=== PATIENT | male | born 1975 | race African-American/Black ===

== ENCOUNTER 2020-03-30 20:46 | Inpatient (IN) | payer OTHER ==
[2020-03-30 22:42] LABS: BASO % 0.3 % (0-2.0); HEMATOCRIT 40.6 % (35.4-49); HEMOGLOBIN 13.4 GM/dL (11.7-16.9); LYMPH % 18.7 % (8-40); MCH 27.6 pg (25.7-33.7); MEAN CELL VOLUME 83.6 fl (80-96); MEAN PLT VOLUME 8.5 fl (7.5-11.1); PLATELET COUNT 376 K/MM3 (134-434); RBC 4.85 M/mm3 (4.00-5.60); RDW 13.6 % (11.9-15.9); WHITE BLOOD COUNT 5.6 K/mm3 (4.0-10.0)
[2020-03-30 22:53] LABS: INR 1.09 (0.83-1.09); PROTHROMBIN TIME (PATIENT) 13.4 SEC (9.7-13.0)
[2020-03-30 22:56] LABS: ACTIVATED PTT 29.2 SECONDS (25.2-36.5)
[2020-03-30] MEDS ORDERED: LACTATED RINGERS SOLUTION 1000 ML INFUS.BAG IV ONE (22:56)
[2020-03-30] MEDS ORDERED: ACETAMINOPHEN 325 MG TABLET (FP) PO ONE (22:56)
[2020-03-30] MEDS ORDERED: ACETAMINOPHEN 325 MG TABLET (FP) ONE (22:59)
[2020-03-30 23:14] LABS: CHLORIDE 100 mmol/L (98-107); POTASSIUM 4.1 mmol/L (3.5-5.1); SODIUM 133 mmol/L (136-145)
[2020-03-30 23:17] LABS: CALCIUM 8.7 mg/dL (8.5-10.1)
[2020-03-30 23:18] LABS: ANION GAP 8 MMOL/L (8-16); BLOOD UREA NITROGEN 13.6 mg/dL (7-18); CO2 25 mmol/L (21-32); GLUCOSE,RANDOM 170 mg/dL (74-106)
[2020-03-30 23:20] LABS: BILIRUBIN,DIRECT 0.2 mg/dL (0.0-0.2)
[2020-03-30 23:21] LABS: SGOT/AST 99 U/L (15-37); SGPT/ALT 108 U/L (13-61)
[2020-03-30 23:22] LABS: BILIRUBIN,TOTAL 0.5 mg/dL (0.2-1); LDH 663 U/L (87-246); TOT PROT 7.8 g/dl (6.4-8.2)
[2020-03-30 23:44] LABS: ALK PHOS 49 U/L (45-117)
[2020-03-31] MEDS ORDERED: DEXAMETHASONE SOD PHOSPHATE 4 MG/1 ML VIAL IVPUSH ONE (00:29)
[2020-03-31] MEDS ORDERED: ENOXAPARIN NA (PORCINE) 80 MG/0.8 ML DISP.SYRIN SQ ONE (00:29)
[2020-03-31 01:37] LABS: VENOUS BASE EXCESS 1.8 mmol/L (-2-2); VENOUS PCO2 42.2 mmHg (38-52); VENOUS PH 7.417 (7.310-7.410)
[2020-03-31] MEDS ORDERED: CEFTRIAXONE 1 GM in DEXTROSE 5%-WATER - 50 ML IVPB SCH (02:00)
[2020-03-31] MEDS ORDERED: ENOXAPARIN NA (PORCINE) 100 MG/1 ML DISP.SYRIN SQ ONE ×2 (02:03→09:55)
[2020-03-31] MEDS ORDERED: DEXAMETHASONE SOD PHOSPHATE 10 MG/1 ML VIAL ONE ×2 (02:03→09:54)
[2020-03-31] MEDS ORDERED: ASCORBIC ACID 500 MG TABLET (FP) ONE ×2 (02:37→09:54)
[2020-03-31] MEDS ORDERED: CEFTRIAXONE 1 GM/50 ML BAG ONE ×2 (02:37→09:55)
[2020-03-31] MEDS: ASCORBIC ACID 500 MG TABLET (FP) PO SCH ×3 (02:46→22:23)
[2020-03-31] MEDS ORDERED: ALBUTEROL SO4 HFA INHALER IH PRN ×2 (04:51→05:00)
[2020-03-31 08:09] LABS: POTASSIUM 4.5 mmol/L (3.5-5.1)
[2020-03-31 08:17] LABS: CALCIUM 8.6 mg/dL (8.5-10.1)
[2020-03-31 08:18] LABS: ALBUMIN 2.8 g/dl (3.4-5.0); BLOOD UREA NITROGEN 12.8 mg/dL (7-18)
[2020-03-31 08:21] LABS: CREATININE 0.8 mg/dL (0.55-1.3)
[2020-03-31 08:22] LABS: TOT PROT 7.4 g/dl (6.4-8.2)
[2020-03-31 08:23] LABS: BILIRUBIN,TOTAL 0.4 mg/dL (0.2-1)
[2020-03-31] MEDS ORDERED: CHOLECALCIFEROL (VIT D3) 1,000 UNIT (25 MCG) TABLET ONE (09:54)
[2020-03-31] MEDS ORDERED: ZINC SULFATE 220 MG CAPSULE (FP) ONE (09:54)
[2020-03-31] MEDS ORDERED: ZINC SULFATE 220 MG TABLET PO SCH ×2 (10:00)
[2020-03-31] MEDS: CEFTRIAXONE 1 GM in DEXTROSE 5%-WATER - 50 ML IVPB SCH (10:00)
[2020-03-31] MEDS: CHOLECALCIFEROL (VIT D3) 1,000 UNIT (25 MCG) TABLET PO SCH (10:00)
[2020-03-31] MEDS ORDERED: ENOXAPARIN NA (PORCINE) 80 MG/0.8 ML DISP.SYRIN SQ SCH (10:00)
[2020-03-31] MEDS: DEXAMETHASONE SOD PHOSPHATE 4 MG/1 ML VIAL IVPUSH SCH (10:00)
[2020-03-31] MEDS: AZITHROMYCIN IVPB 500 MG/250 ML BAG IVPB SCH (15:19)
[2020-03-31] MEDS ORDERED: REMDESIVIR 200 MG in SODIUM CHLORIDE 210 ML IVPB ONE (16:00)
[2020-04-01 08:44] LABS: BASO % 0.2 % (0-2.0); HEMATOCRIT 36.1 % (35.4-49); HEMOGLOBIN 12.2 GM/dL (11.7-16.9); MEAN CELL VOLUME 82.6 fl (80-96); MEAN PLT VOLUME 7.8 fl (7.5-11.1); NEUT % 71.8 % (42.8-82.8); PLATELET COUNT 496 K/MM3 (134-434); RBC 4.37 M/mm3 (4.00-5.60); RDW 13.7 % (11.9-15.9); WHITE BLOOD COUNT 7.6 K/mm3 (4.0-10.0)
[2020-04-01 09:05] LABS: POTASSIUM 4.3 mmol/L (3.5-5.1)
[2020-04-01 09:14] LABS: CALCIUM 8.3 mg/dL (8.5-10.1)
[2020-04-01 09:15] LABS: ALBUMIN 2.5 g/dl (3.4-5.0); BLOOD UREA NITROGEN 19.1 mg/dL (7-18)
[2020-04-01 09:16] LABS: BILIRUBIN,TOTAL 0.4 mg/dL (0.2-1); TOT PROT 6.8 g/dl (6.4-8.2)
[2020-04-01 09:18] LABS: CREATININE 0.9 mg/dL (0.55-1.3)
[2020-04-01] MEDS: ENOXAPARIN NA (PORCINE) 40 MG/0.4 ML DISP.SYRIN SQ SCH (10:50)
[2020-04-01] MEDS: ASCORBIC ACID 500 MG TABLET (FP) PO SCH ×2 (10:50→22:18)
[2020-04-01] MEDS: CHOLECALCIFEROL (VIT D3) 1,000 UNIT (25 MCG) TABLET PO SCH (10:50)
[2020-04-01] MEDS: FAMOTIDINE 20 MG TABLET PO SCH ×2 (10:50→22:18)
[2020-04-01] MEDS: ZINC SULFATE 220 MG CAPSULE (FP) PO SCH (10:51)
[2020-04-01] MEDS: DEXAMETHASONE SOD PHOSPHATE 4 MG/1 ML VIAL IVPUSH SCH (10:51)
[2020-04-01] MEDS: AZITHROMYCIN IVPB 500 MG/250 ML BAG IVPB SCH (12:15)
[2020-04-01] MEDS: CEFTRIAXONE 1 GM in DEXTROSE 5%-WATER - 50 ML IVPB SCH (12:15)
[2020-04-01] MEDS: REMDESIVIR 100 MG in SODIUM CHLORIDE 230 ML IVPB SCH (19:13)
[2020-04-02] MEDS: CHOLECALCIFEROL (VIT D3) 1,000 UNIT (25 MCG) TABLET PO SCH (10:04)
[2020-04-02] MEDS: ENOXAPARIN NA (PORCINE) 40 MG/0.4 ML DISP.SYRIN SQ SCH (10:04)
[2020-04-02] MEDS: ZINC SULFATE 220 MG CAPSULE (FP) PO SCH (10:04)
[2020-04-02] MEDS: ASCORBIC ACID 500 MG TABLET (FP) PO SCH ×2 (10:04→22:00)
[2020-04-02] MEDS: FAMOTIDINE 20 MG TABLET PO SCH ×2 (10:04→22:00)
[2020-04-02] MEDS: DEXAMETHASONE SOD PHOSPHATE 4 MG/1 ML VIAL IVPUSH SCH (10:04)
[2020-04-02 10:28] LABS: BASO % 0.5 % (0-2.0); EOS % 0.1 % (0-4.5); HEMATOCRIT 37.9 % (35.4-49); HEMOGLOBIN 12.7 GM/dL (11.7-16.9); LYMPH % 21.5 % (8-40); MCH 27.8 pg (25.7-33.7); MCHC 33.6 g/dl (32.0-35.9); MEAN CELL VOLUME 82.8 fl (80-96); MEAN PLT VOLUME 7.7 fl (7.5-11.1); MONO % 8.1 % (3.8-10.2); NEUT % 69.8 % (42.8-82.8); PLATELET COUNT 555 K/MM3 (134-434); RBC 4.58 M/mm3 (4.00-5.60); RDW 13.4 % (11.9-15.9); WHITE BLOOD COUNT 6.6 K/mm3 (4.0-10.0)
[2020-04-02 10:31] LABS: POTASSIUM 4.3 mmol/L (3.5-5.1)
[2020-04-02 10:38] LABS: ALBUMIN 2.7 g/dl (3.4-5.0); BLOOD UREA NITROGEN 14.6 mg/dL (7-18); CALCIUM 8.7 mg/dL (8.5-10.1); MAGNESIUM 2.1 mg/dL (1.8-2.4)
[2020-04-02 10:41] LABS: BILIRUBIN,TOTAL 0.6 mg/dL (0.2-1)
[2020-04-02 10:42] LABS: CREATININE 0.8 mg/dL (0.55-1.3); PHOSPHOROUS 4.1 mg/dL (2.5-4.9)
[2020-04-02 11:46] LABS: ERYTHROCYTE SEDIMENTATION RATE 74 mm/hr (0-10)
[2020-04-02] MEDS: CEFTRIAXONE 1 GM in DEXTROSE 5%-WATER - 50 ML IVPB SCH (12:20)
[2020-04-02] MEDS: AZITHROMYCIN IVPB 500 MG/250 ML BAG IVPB SCH (12:53)
[2020-04-02] MEDS: REMDESIVIR 100 MG in SODIUM CHLORIDE 230 ML IVPB SCH (15:16)
[2020-04-03] MEDS: CHOLECALCIFEROL (VIT D3) 1,000 UNIT (25 MCG) TABLET PO SCH (10:28)
[2020-04-03] MEDS: ASCORBIC ACID 500 MG TABLET (FP) PO SCH ×2 (10:28→21:08)
[2020-04-03] MEDS: ZINC SULFATE 220 MG CAPSULE (FP) PO SCH (10:28)
[2020-04-03] MEDS: FAMOTIDINE 20 MG TABLET PO SCH ×2 (10:28→21:08)
[2020-04-03] MEDS: ENOXAPARIN NA (PORCINE) 40 MG/0.4 ML DISP.SYRIN SQ SCH (10:34)
[2020-04-03 10:40] LABS: BASO % 0.2 % (0-2.0); EOS % 0.3 % (0-4.5); HEMATOCRIT 37.4 % (35.4-49); HEMOGLOBIN 12.6 GM/dL (11.7-16.9); LYMPH % 26.6 % (8-40); MCHC 33.7 g/dl (32.0-35.9); MEAN PLT VOLUME 7.6 fl (7.5-11.1); MONO % 7.2 % (3.8-10.2); NEUT % 65.7 % (42.8-82.8); PLATELET COUNT 624 K/MM3 (134-434); RBC 4.51 M/mm3 (4.00-5.60); RDW 13.3 % (11.9-15.9); WHITE BLOOD COUNT 7.5 K/mm3 (4.0-10.0)
[2020-04-03 11:18] LABS: CALCIUM 8.6 mg/dL (8.5-10.1)
[2020-04-03 11:19] LABS: ALBUMIN 2.6 g/dl (3.4-5.0); BLOOD UREA NITROGEN 17.2 mg/dL (7-18); MAGNESIUM 2.2 mg/dL (1.8-2.4)
[2020-04-03] MEDS: DEXAMETHASONE SOD PHOSPHATE 4 MG/1 ML VIAL IVPUSH SCH (11:20)
[2020-04-03] MEDS: AZITHROMYCIN IVPB 500 MG/250 ML BAG IVPB SCH (11:20)
[2020-04-03] MEDS: CEFTRIAXONE 1 GM in DEXTROSE 5%-WATER - 50 ML IVPB SCH (11:20)
[2020-04-03 11:22] LABS: CREATININE 0.8 mg/dL (0.55-1.3); PHOSPHOROUS 3.6 mg/dL (2.5-4.9)
[2020-04-03 11:23] LABS: BILIRUBIN,TOTAL 0.4 mg/dL (0.2-1)
[2020-04-03 11:24] LABS: TOT PROT 6.9 g/dl (6.4-8.2)
[2020-04-03 12:18] LABS: ERYTHROCYTE SEDIMENTATION RATE 73 mm/hr (0-10)
[2020-04-03] MEDS: REMDESIVIR 100 MG in SODIUM CHLORIDE 230 ML IVPB SCH (15:20)
[2020-04-03 16:51] VITALS: BMI 40.1
[2020-04-04] MEDS: DEXAMETHASONE SOD PHOSPHATE 4 MG/1 ML VIAL IVPUSH SCH (10:12)
[2020-04-04] MEDS: ENOXAPARIN NA (PORCINE) 40 MG/0.4 ML DISP.SYRIN SQ SCH (10:13)
[2020-04-04] MEDS: ZINC SULFATE 220 MG CAPSULE (FP) PO SCH (10:14)
[2020-04-04] MEDS: ASCORBIC ACID 500 MG TABLET (FP) PO SCH ×2 (10:14→22:08)
[2020-04-04] MEDS: CHOLECALCIFEROL (VIT D3) 1,000 UNIT (25 MCG) TABLET PO SCH (10:14)
[2020-04-04] MEDS: FAMOTIDINE 20 MG TABLET PO SCH ×2 (10:14→22:09)
[2020-04-04] MEDS: REMDESIVIR 100 MG in SODIUM CHLORIDE 230 ML IVPB SCH (17:17)
[2020-04-05] MEDS: DEXAMETHASONE SOD PHOSPHATE 4 MG/1 ML VIAL IVPUSH SCH (10:17)
[2020-04-05] MEDS: ZINC SULFATE 220 MG CAPSULE (FP) PO SCH (10:18)
[2020-04-05] MEDS: FAMOTIDINE 20 MG TABLET PO SCH (10:18)
[2020-04-05] MEDS: ASCORBIC ACID 500 MG TABLET (FP) PO SCH (10:19)
[2020-04-05] MEDS: CHOLECALCIFEROL (VIT D3) 1,000 UNIT (25 MCG) TABLET PO SCH (10:19)
[2020-04-05] MEDS: ENOXAPARIN NA (PORCINE) 40 MG/0.4 ML DISP.SYRIN SQ SCH (13:11)
[2020-04-05 19:01] VITALS: BP 149/93; PULSE 118; TEMP 98.9
== END 2020-04-05 18:45 | disposition home or self-care (01) | DRG 137 ==
LOC: JER 20:46 → JERBED 03-31 00:29 → JER 03-31 01:21 → J5S 03-31 11:01
PROVIDERS: ADMIT Hospitalist; ATTEND Internal Medicine
PROC: XW033E5 Introduction of Remdesivir Anti-infective into Peripheral Vein, Percutaneous Approach, New Technology Group 5 (ICD-10-PCS; principal; 2020-04-01)
PROC: XW13325 Transfusion of Convalescent Plasma (Nonautologous) into Peripheral Vein, Percutaneous Approach, New Technology Group 5 (ICD-10-PCS; 2020-04-01)
DX: U07.1 COVID-19 (principal); E66.01 Morbid (severe) obesity due to excess calories; Z68.41 Body mass index [BMI] 40.0-44.9, adult; G31.84 Mild cognitive impairment of uncertain or unknown etiology; Q89.9 Congenital malformation, unspecified; J96.01 Acute respiratory failure with hypoxia; J12.82 Pneumonia due to coronavirus disease 2019; F79 Unspecified intellectual disabilities; R00.0 Tachycardia, unspecified
CPT/HCPCS: 36415; 36430; 71045-TC-FY; 80048; 80053; 82248; 82550; 82553; 82728; 82803; 83605; 83615; 83735; 84100; 84484; 85025; 85379; 85610; 85651; 85730; 86140; 86850; 86900; 86901; 87040; 87426; 87804; 93005; 93010; 94761; 99285-25; C9399; C9803; P9017; U0003